=== PATIENT | male | born 1945 | race Caucasian/White ===

== ENCOUNTER 2017-06-17 14:18 | Observation (INO) | payer MEDICARE, BC ==
[2017-06-17] VITALS (7 sets, daily range): BP systolic 141–227; BP diastolic 72–102; PULSE 60–74; RESP 16–18; TEMP 98.1; O2SAT 95–100
[~2017-06-17] VITALS: Ht 177.8 cm; Wt 89.5 kg
[~2017-06-17 14:18] MED LIST: ESOM1CAP6 PO; ZITH250T PO
--- NOTE | 2017-06-17 14:58 | PD ---
HPI Chief Complaint: Cardiac Complaint Time Seen by Provider: 14:45 Travel History International Travel<30 days: No Contact w/Intl Traveler<30days: No Traveled to known affect area: No History of Present Illness HPI To be 1-year-old male with history of hypertension presents for evaluation of chest pain, headache, dizziness. He reports that he woke up with these symptoms yesterday morning. He describes the chest pain as a sharp/pressure type of pain substernally that radiates into the back. The headache is occipital in location and pressure type pain. He reports that his symptoms wax and wane with no obvious aggravating or alleviating factors. He endorses slight dyspnea. Denies nausea, vomiting, diaphoresis, cough, congestion, abdominal pain, recent travel, recent surgery, lower extremity edema. Denies tobacco use. Denies history of aortic aneurysm, PE/DVT, coronary artery disease. He has no other complaints at this time. PFSH Past Medical History Cancer: No Cardiovascular Problems: No Diabetes: No Diminished Hearing: No GERD: Yes Glaucoma: No Hepatitis: No Hiatal Hernia: No Hypertension: No Respiratory: Yes (SEASONAL ALLERGIES) Immunizations Current: No Thyroid Disease: No Past Surgical History Abdominal Surgery: Yes (appendectomy) Appendectomy: Yes Oral Surgery: Yes (T&A) Pacemaker: No Tonsillectomy: Yes Other Surgery: Yes (LEFT KNEE, ARTHOSCOPY) Social History Alcohol Use: Yes (3-4 BEERS PER DAY) Tobacco Use: No Substance Use: No Allergies-Medications (Allergen,Severity, Reaction): Coded Allergies: lactose (Unverified Allergy, Intermediate, DIARRHEA, 06/17/17) penicillin G (Unverified Allergy, Intermediate, HIVES, 06/17/17) Reported Meds & Prescriptions Reported Meds & Active Scripts Active Reported Nasonex Nasal [place] (Mometasone Furoate) 50 Mcg/Act Naspr 2 [place] EACH NARE DAILY Lisinopril Unknown Strength Tab Unknown Dose PO DAILY Aspirin 81 Mg Chew 81 Mg CHEW DAILY Review of Systems Except as stated in HPI: all other systems reviewed are Neg Physical Exam Narrative GENERAL: Well-developed well-nourished male in no acute distress answering questions appropriately. Hypertensive. SKIN: Warm and dry. HEAD: Atraumatic. Normocephalic. EYES: Pupils equal and round. No scleral icterus. No injection or drainage. ENT: No nasal bleeding or discharge. Mucous membranes pink and moist. NECK: Trachea midline. No JVD. CARDIOVASCULAR: Regular rate and rhythm. No murmur appreciated. RESPIRATORY: No accessory muscle use. Clear to auscultation. Breath sounds equal bilaterally. GASTROINTESTINAL: Abdomen soft, non-tender, nondistended. Hepatic and splenic margins not palpable. MUSCULOSKELETAL: No obvious deformities. No clubbing. No cyanosis. No edema. NEUROLOGICAL: Awake and alert. No obvious cranial nerve deficits. Motor grossly within normal limits. Normal speech. PSYCHIATRIC: Appropriate mood and affect; insight and judgment normal. Data Data Last Documented VS Vital Signs Date Time Temp Pulse Resp B/P (MAP) Pulse Ox O2 Delivery O2 Flow Rate FiO2 06/17/17 16:17 16 06/17/17 15:40 60 141/72 (95) 99 Room Air 06/17/17 15:20 2.00 06/17/17 14:19 98.1 Orders Orders Electrocardiogram (06/17/17 ) Basic Metabolic Panel (Bmp) (06/17/17 14:53) Ckmb (Isoenzyme) Profile (06/17/17 14:53) Complete Blood Count With Diff (06/17/17 14:53) Magnesium (Mg) (06/17/17 14:53) Prothrombin Time / Inr (Pt) (06/17/17 14:53) Act Partial Throm Time (Ptt) (06/17/17 14:53) Troponin I (06/17/17 14:53) Chest, Single Ap (06/17/17 14:53) Ecg Monitoring (06/17/17 14:53) Bilateral Bp Monitoring (06/17/17 14:53) Iv Access Insert/Monitor (06/17/17 14:53) Oximetry (06/17/17 14:53) Oxygen Administration (06/17/17 14:53) Morphine Inj (Morphine Inj) (06/17/17 15:00) Sodium Chloride 0.9% Flush (Ns Flush) (06/17/17 15:00) Nitroglycerin Sl (Nitrostat Sl) (06/17/17 15:00) Cta Thor Abd Aorta W Iv C W3d (06/17/17 14:53) Ct Brain W/O Iv Contrast(Rout) (06/17/17 ) CKMB (06/17/17 15:00) CKMB% (06/17/17 15:00) Iohexol 350 Inj (Omnipaque 350 Inj) (06/17/17 16:28) Admit Order (Ed Use Only) (06/17/17 16:42) Labs Laboratory Tests Test 06/17/17 15:00 White Blood Count 10.8 TH/MM3 Red Blood Count 4.32 MIL/MM3 Hemoglobin 14.6 GM/DL Hematocrit 44.3 % Mean Corpuscular Volume 102.3 FL Mean Corpuscular Hemoglobin 33.7 PG Mean Corpuscular Hemoglobin Concent 33.0 % Red Cell Distribution Width 13.7 % Platelet Count 210 TH/MM3 Mean Platelet Volume 10.7 FL Neutrophils (%) (Auto) 53.9 % Lymphocytes (%) (Auto) 33.1 % Monocytes (%) (Auto) 9.9 % Eosinophils (%) (Auto) 2.2 % Basophils (%) (Auto) 0.9 % Neutrophils # (Auto) 5.8 TH/MM3 Lymphocytes # (Auto) 3.6 TH/MM3 Monocytes # (Auto) 1.1 TH/MM3 Eosinophils # (Auto) 0.2 TH/MM3 Basophils # (Auto) 0.1 TH/MM3 CBC Comment AUTO DIFF Differential Comment AUTO DIFF CONFIRMED Prothrombin Time 12.0 SEC Prothromb Time International Ratio 1.1 RATIO Activated Partial Thromboplast Time 21.3 SEC Blood Urea Nitrogen 14 MG/DL Creatinine 1.13 MG/DL Random Glucose 81 MG/DL Calcium Level 9.6 MG/DL Magnesium Level 2.0 MG/DL Sodium Level 135 MEQ/L Potassium Level 5.2 MEQ/L Chloride Level 106 MEQ/L Carbon Dioxide Level 24.9 MEQ/L Anion Gap 4 MEQ/L Estimat Glomerular Filtration Rate 64 ML/MIN Total Creatine Kinase 152 U/L Creatine Kinase MB 1.8 NG/ML Troponin I LESS THAN 0.02 NG/ML MDM Medical Decision Making Medical Screen Exam Complete: Yes Emergency Medical Condition: Yes Medical Record Reviewed: Yes Interpretation(s) CONCLUSION: Chronic right sphenoid sinusitis. Normal brain. Differential Diagnosis Acute coronary syndrome, hypertensive urgency, aortic dissection, pulmonary embolism, costochondritis, pericarditis, myocarditis, pneumothorax, hemothorax Narrative Course The patient was placed on ECG monitoring pulse oximetry. A 12 leak EKG was obtained. Plan is for lab work, a CTA of the aorta, CT brain, chest x-ray. He will be given supplemental nitroglycerin, IV morphine. He will be monitored closely. The patient's initial lab work and imaging studies are reassuring. CTA reveals CONCLUSION: 1. No evidence for aortic dissection or aneurysm. 2. Severe emphysema. 3. Renal and hepatic cysts. 4. Left lung nodules. Followup CT chest in 6 months recommended. 5. Diverticulosis without diverticulitis. The patient was given a copy of his CTA results for follow-up purposes. At this point in time the plan would be to admit the patient of the chest pain center for serial cardiac enzymes and rule out purposes. He is agreeable. Diagnosis Primary Impression: Chest pain Additional Impression: Hypertension Admitting Information Admitting Physician Requests: Mitesh Springer Jun 17, 2017 14:58
[2017-06-17] MEDS ORDERED: MORPHINE SULFATE 4 MG/ML INJ IV PUSH ONE (15:00)
[2017-06-17] MEDS ORDERED: SODIUM CHLORIDE 0.9% FLUSH 10 ML FLUSH IVF PRN (15:00)
[2017-06-17] MEDS: NITROGLYCERIN 0.4 MG SL 25 TABS/BTL SL SCH ×3 (15:05→15:26)
--- NOTE | 2017-06-17 15:15 | RADRPT ---
EXAM DATE/TIME: 06/17/2017 14:56 [facility] COMPARISON: No previous studies available for comparison. INDICATIONS : Chest pain MEDICAL HISTORY : None. SURGICAL HISTORY : None. ENCOUNTER: Initial ACUITY: 3 days PAIN SCORE: 4/10 LOCATION: chest FINDINGS: A single view of the chest demonstrates the lungs to be symmetrically aerated without evidence of mas s, infiltrate or effusion. The cardiomediastinal contours are unremarkable. Osseous structures are intact. CONCLUSION: Normal examination. Westley Guaman MD on June 17, 2017 at 15:14 Board Certified Radiologist. This report was verified electronically.
[2017-06-17 15:31] LABS: AUTOMATED NEUTROPHIL # 5.8 TH/MM3 (1.8-7.7); BASOPHIL # 0.1 TH/MM3 (0-0.2); BASOPHIL % 0.9 % (0.0-2.0); EOSINOPHIL # 0.2 TH/MM3 (0-0.4); EOSINOPHIL % 2.2 % (0.0-4.0); HEMATOCRIT 44.3 % (39.0-51.0); HEMOGLOBIN 14.6 GM/DL (13.0-17.0); LYMPH % 33.1 % (9.0-44.0); LYMPHOCYTE # 3.6 TH/MM3 (1.0-4.8); MEAN CELL VOLUME 102.3 FL (80.0-100.0); MEAN CORPUSCULAR HEMOGLOBIN 33.7 PG (27.0-34.0); MEAN PLATELET VOLUME 10.7 FL (7.0-11.0); MONO % 9.9 % (0.0-8.0); MONOCYTE # 1.1 TH/MM3 (0-0.9); NEUT % 53.9 % (16.0-70.0); PLATELET COUNT 210 TH/MM3 (150-450); RED BLOOD COUNT 4.32 MIL/MM3 (4.50-5.90); RED CELL DISTRIBUTION WIDTH 13.7 % (11.6-17.2); WHITE BLOOD COUNT 10.8 TH/MM3 (4.0-11.0)
[2017-06-17 15:43] LABS: INTERNATIONAL NORMALIZED RATIO 1.1 RATIO
[2017-06-17 15:54] LABS: BICARBONATE 24.9 MEQ/L (21.0-32.0); BLOOD UREA NITROGEN 14 MG/DL (7-18); CALCIUM 9.6 MG/DL (8.5-10.1); CHLORIDE 106 MEQ/L (98-107); CREATININE 1.13 MG/DL (0.60-1.30); GLOMERULAR FILTRATION RATE 64 ML/MIN (>89); GLUCOSE,RANDOM 81 MG/DL (74-106); SODIUM (NA) 135 MEQ/L (136-145); TROPONIN I LESS THAN 0.02 NG/ML (0.02-0.05)
[2017-06-17] MEDS ORDERED: ASPI-516 CHEW (15:56)
[2017-06-17] MEDS ORDERED: LISI2.5T3 PO (15:56)
[2017-06-17] MEDS ORDERED: MOME17I EACH NARE (15:56)
[2017-06-17] MEDS ORDERED: IOHEXOL 350 MG/ML 10 ML VIAL (for RAD DIAG) IVCONTRAST ONE (16:28)
--- NOTE | 2017-06-17 16:30 | RADRPT ---
EXAM DATE/TIME: 06/17/2017 16:02 [facility] COMPARISON: No previous studies available for comparison. INDICATIONS : Headache with chest and back pain. RADIATION DOSE: 56.42 CTDIvol (mGy) MEDICAL HISTORY : Gastroesophageal reflux disease. SURGICAL HISTORY : Appendectomy. Bilateral arthroscopic knee ENCOUNTER: Initial ACUITY: 2 days PAIN SCALE: 7/10 LOCATION: Bilateral cranial TECHNIQUE: Multiple contiguous axial images were obtained of the head. Using automated exposure control and adj ustment of the mA and/or kV according to patient size, radiation dose was kept as low as reasonably a chievable to obtain optimal diagnostic quality images. DICOM format image data is available electro nically for review and comparison. FINDINGS: The brain is normal in appearance. No hemorrhage, infarct, or mass. There is chronic sinus opacificat ion of the right sphenoid chest with periosteal thickening and an air-fluid level. No fractures. CONCLUSION: Chronic right sphenoid sinusitis. Normal brain. Westley Guaman MD on June 17, 2017 at 16:28 Board Certified Radiologist. This report was verified electronically.
--- NOTE | 2017-06-17 16:35 | RADRPT ---
EXAM DATE/TIME: 06/17/2017 16:07 [facility] COMPARISON: CHEST SINGLE AP, June 17, 2017, 14:56. INDICATIONS : Chest pain, subsided yesterday then came back, headache, pain to back, neck pain, nausea and weakness . IV CONTRAST: 75 cc Omnipaque 350 (iohexol) IV RADIATION DOSE: 27.87 CTDIvol (mGy) MEDICAL HISTORY : Gastroesophageal reflux disease. SURGICAL HISTORY : Appendectomy. Arthroscopic bilateral knee. ENCOUNTER: Initial ACUITY: 2 days PAIN SCALE: 8/10 LOCATION: Bilateral chest TECHNIQUE: Volumetric scanning was performed using a multi-row detector CT scanner. The data was post processed with a variety of visualization algorithms including full volume maximum intensity projection, multi -planar sliding thin slab reformation, curved planar reformation, and surface rendering techniques. Using automated exposure control and adjustment of the mA and/or kV according to patient size, radiat ion dose was kept as low as reasonably achievable to obtain optimal diagnostic quality images. DICOM format image data is available electronically for review and comparison. FINDINGS: LUNGS: Severe emphysematous changes are noted. Biapical parenchymal scarring is present at there are 2 pleur al-based nodules seen in the left lower lobe lung oblique fissure measuring up to 6.2 mm there is no evidence of pneumonia. MEDIASTINUM: No abnormally enlarged lymph nodes by CT criteria. No axillary or hilar abnormalities are identified. ABDOMEN: The liver demonstrates a small hypodense lesion in the left lobe measuring 1 cm characteristic of a c yst. Spleen is normal. The gallbladder and pancreas demonstrate no abnormality. The adrenal glands ar e normal. The kidneys demonstrate no evidence of solid renal mass or hydronephrosis. A 1.2 cm left mi dpole renal cyst is present. There is also a circumscribed simple cyst at the lower pole of the left kidney measuring 2.7 cm. No free fluid or abdominal masses are identified. No para-aortic adenopathy is seen. The prostate is prominent with calcifications. Measures 6 x 4.1 cms. Diverticulosis of the s igmoid and descending colon. PELVIS: No evidence of free fluid or pelvic mass. No abnormally enlarged inguinal or retroperitoneal lymph no grabiel are present. The bladder is unremarkable. THORACIC AORTA: The thoracic aortic root is normal with normal branching of the great vessels. There is no evidence of aneurysm or dissection. ABDOMINAL AORTA: There is no evidence of aneurysm. Scattered atherosclerotic calcific plaquing identified. No high-gra de stenosis is seen. PELVIC VESSELS: The internal iliac and external iliac vessels are patent without aneurysm or stenosis. CONCLUSION: 1. No evidence for aortic dissection or aneurysm. 2. Severe emphysema. 3. Renal and hepatic cysts. 4. Left lung nodules. Followup CT chest in 6 months recommended. 5. Diverticulosis without diverticulitis. Westley Guaman MD on June 17, 2017 at 16:29 Board Certified Radiologist. This report was verified electronically.
[2017-06-17] MEDS ORDERED: IOHEXOL 350 MG/ML 50 ML BTL (for Cath Lab) OTHER ONE (16:44)
[2017-06-17] MEDS ORDERED: IOHEXOL 350 MG/ML 100 ML BTL (for Cath Lab) OTHER ONE (16:44)
[2017-06-17] MEDS ORDERED: SODIUM CHLORIDE 0.9% FLUSH 10 ML FLUSH IV FLUSH PRN (17:15)
[2017-06-17] MEDS ORDERED: NITROGLYCERIN 0.4 MG SL 25 TABS/BTL SL PRN (17:30)
[2017-06-17] MEDS ORDERED: ONDANSETRON HCL 4 MG/2 ML VIAL IV PUSH PRN (17:30)
[2017-06-17] MEDS ORDERED: ACETAMINOPHEN 500 MG CPLT PO PRN (17:30)
[2017-06-17] MEDS ORDERED: cloNIDine HCL 0.1 MG TAB PO PRN (18:15)
--- NOTE | 2017-06-17 18:27 | HHI.HP ---
HPI Primary Care Physician Delilah Sam MD Chief Complaint Chest pain, dizziness, headache History of Present Illness 71-year-old male with history of hypertension presents to emergency room for further evaluation of chest pain. Onset 12:30 PM. Location substernal. Initially described as a sharp, shooting pain radiating across inframammary area , changed characteristics now described as pressure. Associated symptoms included headache, dizziness, nausea, diaphoresis, and generalized weakness. Denied nausea or dyspnea. No radiation of pain, however reported right midback was sore. Back discomfort has resolved. Denies a ripping sensation or pain radiated straight though his back. Did not hurt to take a deep breath. Headache located in occipital region described as "someone sitting on my head." No vision changes, slurred speech, or unilateral weakness. Denies worse headache ever. Headache originally 8/10, currently 4/10. No particular movement or position make pain better or worse. No known precipitating factors. No known injury or trauma. No syncopal episode. Relieving factors baby aspirin and morphine given in the ER helped "somewhat." Denies similar pain in the past. Review of Systems General: No fatigue, fever, chills, recent illness, or change in appetite. Has been in his general state of health. HEENT: Continues to have headache as stated above, improving. No vision changes. CV: As stated above. Continues to have chest pressure, sharp pain has resolved. No intermittent leg pain. RESP: No SOB, cough, wheeze, or recent URI. 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 GI: No nausea, vomiting, bowel changes, diarrhea, constipation, pain, melena, or blood in the stool. No unintentional weight gain or weight loss. : No dysuria, urgency, frequency, or history of kidney stones. EXT: No lower leg edema MS: No discomfort, change in ROM, injury, or known trauma. NEURO: Dizziness improved. No difficulty with balance, LOC, motor/sensory deficits, or near syncopal episodes. PSYCH: No anxiety, depression, or situational stress. SKIN: No rashes, no concerning lesions Past Family Social History Allergies: Coded Allergies: lactose (Unverified Allergy, Intermediate, DIARRHEA, 06/17/17) penicillin G (Unverified Allergy, Intermediate, HIVES, 06/17/17) Past Medical History Hypertension, chronic sinusitis, tinnitus Past Surgical History Appendectomy, left knee arthroscopy Reported Medications Reported Meds & Active Scripts Active Reported Nasonex Nasal [place] (Mometasone Furoate) 50 Mcg/Act Naspr 2 [place] EACH NARE DAILY Lisinopril 10mg PO QD Aspirin 81 Mg Chew 81 Mg CHEW DAILY Active Ordered Medications Current Medications Medications (Trade) Dose Ordered Sig/Richelle Route Start Time Stop Time Status Last Admin (NS Flush) 2 ml UNSCH PRN IV FLUSH 06/17/17 17:15 (NS Flush) 2 ml BID IV FLUSH 06/17/17 21:00 (Tylenol) 500 mg Q4H PRN PO 06/17/17 17:30 (Zofran Inj) 4 mg Q6H PRN IV PUSH 06/17/17 17:30 (Nitrostat Sl) 0.4 mg Q5M PRN SL 06/17/17 17:30 (Aspirin) 325 mg DAILY PO 06/18/17 09:00 Family History Brother CABG age 55. Social History Known hypertension. No known diabetes or hyperlipidemia. Former smoker, quit 2003. 125 pack year smoker. Endorses daily alcohol between 3 -6 drinks. . 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 Past cardiac testing None Physical Exam Vital Signs Vital Signs Date Time Temp Pulse Resp B/P (MAP) Pulse Ox O2 Delivery O2 Flow Rate FiO2 06/17/17 17:10 06/17/17 16:17 16 06/17/17 15:40 60 16 141/72 (95) 99 Room Air 06/17/17 15:35 16 06/17/17 15:20 74 16 160/81 (107) 98 Nasal Cannula 2.00 06/17/17 14:50 64 16 205/99 (134) 99 Nasal Cannula 2.00 06/17/17 14:45 100 Nasal Cannula 2.00 06/17/17 14:45 62 16 100 Room Air 06/17/17 14:19 98.1 73 16 227/102 (143) 99 Room Air Physical Exam GENERAL: Alert WN, WD, NAD, pleasant, male HEAD: NC, AT EYES: Sclera clear, conjunctiva without injection, pupils equal and round ENT: Mucous membranes pink and moist NECK: Supple, no masses, trachea midline CV: RRR, without murmur, rub, gallop, no JVD, S1-S2 no S3-S4. No carotid bruits. Chest wall nontender with palpation. RESP: Clear lungs throughout bilateral, no crackles, wheeze, rhonchi, symmetrical chest rise, nonlabored, able to speak in full sentences ABD: Soft, NT, ND, no masses, positive bowel tones BACK: No scoliosis, nontender with palpation. EXT: Pulses +14, no dependent edema MS: Normal tone 4 extremities, no obvious deformities, full range of motion NEURO: CN II through CN XII grossly intact, motor strength 5/5 PSYCH: A+O 3, pleasant affect, appropriate speech, appropriate mood and affect , insight and judgment SKIN: Normal turgor, normal texture, no lesions, no rashes, sluggish cap refill , even hair distribution Laboratory Laboratory Tests Test 06/17/17 15:00 White Blood Count 10.8 Red Blood Count 4.32 Hemoglobin 14.6 Hematocrit 44.3 Mean Corpuscular Volume 102.3 Mean Corpuscular Hemoglobin 33.7 Mean Corpuscular Hemoglobin Concent 33.0 Red Cell Distribution Width 13.7 Platelet Count 210 Mean Platelet Volume 10.7 Neutrophils (%) (Auto) 53.9 Lymphocytes (%) (Auto) 33.1 Monocytes (%) (Auto) 9.9 Eosinophils (%) (Auto) 2.2 Basophils (%) (Auto) 0.9 Neutrophils # (Auto) 5.8 Lymphocytes # (Auto) 3.6 Monocytes # (Auto) 1.1 Eosinophils # (Auto) 0.2 Basophils # (Auto) 0.1 CBC Comment AUTO DIFF Differential Comment AUTO DIFF CONFIRMED Prothrombin Time 12.0 Prothromb Time International Ratio 1.1 Activated Partial Thromboplast Time 21.3 Blood Urea Nitrogen 14 Creatinine 1.13 Random Glucose 81 Calcium Level 9.6 Magnesium Level 2.0 Sodium Level 135 Potassium Level 5.2 Chloride Level 106 Carbon Dioxide Level 24.9 Anion Gap 4 Estimat Glomerular Filtration Rate 64 Total Creatine Kinase 152 Creatine Kinase MB 1.8 Troponin I LESS THAN 0.02 Result Diagram: 06/17/17 1500 06/17/17 1500 Imaging Last Impressions Chest X-Ray 06/17/17 1453 Signed Impressions: Service Date/Time: Saturday, June 17, 2017 14:56 - CONCLUSION: Normal examination. Westley Guaman MD Aorta CTA 06/17/17 1453 Signed Impressions: Service Date/Time: Saturday, June 17, 2017 16:07 - CONCLUSION: 1. No evidence for aortic dissection or aneurysm. 2. Severe emphysema. 3. Renal and hepatic cysts. 4. Left lung nodules. Followup CT chest in 6 months recommended. 5. Diverticulosis without diverticulitis. Westley Guaman MD Head CT 06/17/17 0000 Signed Impressions: Service Date/Time: Saturday, June 17, 2017 16:02 - CONCLUSION: Chronic right sphenoid sinusitis. Normal brain. Westley Guaman MD Course EKG NSB, incomplete Right BBB Caprini VTE Risk Assessment Caprini VTE Risk Assessment: Mod/High Risk (score >= 2) Caprini Risk Assessment Model Point Value = 1 Point Value = 2 Point Value = 3 Point Value = 5 Age 41-60 Minor surgery BMI > 25 kg/m2 Swollen legs Varicose veins or History of unexplained or recurrent spontaneous Oral contraceptives or hormone replacement Sepsis (< 1 month) Serious lung disease, including pneumonia (< 1 month) Abnormal pulmonary function Acute myocardial infarction Congestive heart failure (< 1 month) History of inflammatory bowel disease Medical patient at bed rest Age 61-74 Arthroscopic surgery Major open surgery (> 45 min) Laparoscopic surgery (> 45 min) Malignancy Confined to bed (> 72 hours) Immobilizing plaster cast Central venous access Age >= 75 History of VTE Family history of VTE Factor V Leiden Prothrombin [id number] Lupus anticoagulant Anticardiolipin antibodies Elevated serum homocysteine Heparin-induced thrombocytopenia Other congenital or acquired thrombophilia Stroke (< 1 month) Elective arthroplasty Hip, pelvis, or leg fracture Acute spinal cord injury (< 1 month) Prophylaxis Regimen Total Risk Factor Score Risk Level Prophylaxis Regimen 0-1 Low Early ambulation 2 Moderate Order ONE of the following: *Sequential Compression Device (SCD) *Heparin 5000 units SQ BID 3-4 Higher Order ONE of the following medications: *Heparin 5000 units SQ TID *Enoxaparin/Lovenox 40 mg SQ daily (WT < 150 kg, CrCl > 30 mL/min) *Enoxaparin/Lovenox 30 mg SQ daily (WT < 150 kg, CrCl > 10-29 mL/min) *Enoxaparin/Lovenox 30 mg SQ BID (WT < 150 kg, CrCl > 30 mL/min) AND/OR *Sequential Compression Device (SCD) 5 or more Highest Order ONE of the following medications: *Heparin 5000 units SQ TID (Preferred with Epidurals) *Enoxaparin/Lovenox 40 mg SQ daily (WT < 150 kg, CrCl > 30 mL/min) *Enoxaparin/Lovenox 30 mg SQ daily (WT < 150 kg, CrCl > 10-29 mL/min) *Enoxaparin/Lovenox 30 mg SQ BID (WT < 150 kg, CrCl > 30 mL/min) AND *Sequential Compression Device (SCD) Assessment and Plan Assessment and Plan #1 Atypical chest pain-admitted to chest pain center. Ruled out with 3 sets of EKGs, cardiac enzymes, and monitor overnight. Will be seen and evaluated by Dr. Harvey Gabriel in a.m. Discussed possible cardiac stress testing in a.m., this will be determined after evaluation by stone cutter. Patient agreeable plan of care. #2 Hypertension-continue lisinopril, clonidine 0.1 mg every 6 hours when necessary as needed for systolic greater than 180 or diastolic greater than 100 , repeat BMP in a.m. Consider adding HCTZ as a second antihypertensive agent. #3 Cephalgia-CT brain unremarkable, Tylenol PRN, continue to monitor. Discussed possible reason for headache due to severely elevated blood pressure noted on arrival. Alcohol use-discussed dietary guidelines for alcohol of no more than 2 alcohol drinks daily for men, encouraged him to decrease his alcohol intake for preventive medical management. Follow up CT chest in 6 months discussed. Heather Torres Jun 17, 2017 18:27
[2017-06-17 19:08] LABS: TROPONIN I LESS THAN 0.02 NG/ML (0.02-0.05)
[2017-06-17] MEDS: HYDROCHLOROTHIAZIDE 25 MG TAB PO SCH (19:15)
[2017-06-17] MEDS ORDERED: CALCIUM CARBONATE 500 MG CHEWABLE TAB PO PRN (20:45)
[2017-06-17] MEDS ORDERED: FAMOTIDINE 20 MG TAB PO ONE (20:45)
[2017-06-17] MEDS: SODIUM CHLORIDE 0.9% FLUSH 10 ML FLUSH IV FLUSH SCH (21:00)
[2017-06-17 22:02] LABS: TROPONIN I LESS THAN 0.02 NG/ML (0.02-0.05)
[2017-06-18] VITALS (9 sets, daily range): BP systolic 137–171; BP diastolic 69–83; PULSE 51–80; RESP 16–20; TEMP 97.5–98.8; O2SAT 97–98
[2017-06-18 06:30] LABS: CALCIUM 8.9 MG/DL (8.5-10.1); CREATININE 1.08 MG/DL (0.60-1.30)
[2017-06-18] MEDS: ASPIRIN 325 MG TAB PO SCH (08:07)
[2017-06-18] MEDS: LISINOPRIL 10 MG TAB PO SCH (08:08)
[2017-06-18] MEDS: HYDROCHLOROTHIAZIDE 25 MG TAB PO SCH (08:09)
[2017-06-18] MEDS: SODIUM CHLORIDE 0.9% FLUSH 10 ML FLUSH IV FLUSH SCH ×2 (08:09→20:01)
[2017-06-18] MEDS ORDERED: REGADENOSON INJ 0.4 MG/5 ML SYR ONE (12:04)
--- NOTE | 2017-06-18 14:32 | EKG ---
Date Performed: 06/17/2017 Time Performed: 22:26:45 PTAGE: 71 years EKG: SINUS BRADYCARDIA INCOMPLETE RIGHT BUNDLE BRANCH BLOCK BORDERLINE ECG PREVIOUS TRACING : 06/17/2017 18.35 Since previous tracing, no significant change noted DOCTOR: Harvey Gabriel Interpretating Date/Time 06/18/2017 14:31:22
--- NOTE | 2017-06-18 14:32 | EKG ---
Date Performed: 06/17/2017 Time Performed: 18:35:10 PTAGE: 71 years EKG: SINUS BRADYCARDIA INCOMPLETE RIGHT BUNDLE BRANCH BLOCK BORDERLINE ECG PREVIOUS TRACING : 06/17/2017 14.43 Since previous tracing, no significant change noted DOCTOR: Harvey Gabriel Interpretating Date/Time 06/18/2017 14:32:06
--- NOTE | 2017-06-18 14:33 | EKG ---
Date Performed: 06/17/2017 Time Performed: 14:43:40 PTAGE: 71 years EKG: SINUS BRADYCARDIA INCOMPLETE RIGHT BUNDLE BRANCH BLOCK BORDERLINE ECG NO PREVIOUS TRACING DOCTOR: Harvey Gabriel Interpretating Date/Time 06/18/2017 14:32:27
--- NOTE | 2017-06-18 14:37 | TR ---
Date Performed: 06/18/2017 Time Performed: 09:59:18 DOCTOR: Harvey Gabriel DRUG LIST: CLINICAL HISTORY: REASON FOR TEST: REASON FOR ENDING: OBSERVATION: CONCLUSION: Ant protocol completed. Stopped sec to leg fatigue and exceding target heart rate. Maximum AF=510 Target HR Achieved=94.0% Maximum JO=518/76 Total Exercise Time=3:13. No reprod chest pain. Freq PVC during recovery. No st t segment depression to sugg ischemia. Poor exercise tolerance. Normal bp response. Recovery quick and unremakrable. COMMENTS: . At peak exercise ST depression was noted. ST was upsloping but did not return to ba seline within 80 msec. No chest pain present. This could represent ischemia but likely a false positi ve. Will plan nuclear imaging
--- NOTE | 2017-06-18 14:38 | TR ---
Date Performed: 06/18/2017 Time Performed: 12:21:10 DOCTOR: Harvey Gabriel DRUG LIST: CLINICAL HISTORY: REASON FOR TEST: Angina REASON FOR ENDING: OBSERVATION: CONCLUSION: Lexiscan stress test was performed under standard four minute protocol. Radionuclid e was injected one minute prior to ending the test. No electrocardiographic abormalities were present to suggest ischemia. Nuclear imaging and interpretation are pending. COMMENTS:
--- NOTE | 2017-06-18 15:15 | RADRPT ---
EXAM DATE/TIME: 06/18/2017 11:55 [place] COMPARISON: No previous studies available for comparison. INDICATIONS : Substernal chest pain radiating to the back with dyspnea, headache and dizziness. Angina. DOSE: 27.6 mCi Tc99m Myoview at stress. 8.6 mCi Tc99m Myoview at rest. 0.4 mg Lexiscan STRESS SYMPTOMS: Dyspnea and chest pain EJECTION FRACTION: 64% MEDICAL HISTORY : Gastroesophageal reflux disease. SURGICAL HISTORY : Tonsillectomy. Appendectomy. ENCOUNTER: Initial ACUITY: 1 day PAIN SCALE: 7/10 LOCATION: Substernal chest TECHNIQUE: The patient underwent pharmacologic stress with infusion of prescribed dose. Continuous ECG tracing was monitored during stress. Gated SPECT imaging was performed after stress and conventional SPECT i maging was performed at rest. The examination was performed on a SPECT/CT scanner, both attenuation and non-corrected datasets were reviewed. FINDINGS: DISTRIBUTION: The maximum perfused segment at stress is in the lateral wall. PERFUSION STUDY: Focal perfusion defect in the inferior apical wall during stress. GATED STUDY: There is intact wall motion and thickening without hypokinetic or dyskinetic segments. CONCLUSION: 1. Stress-induced focal inferior apical wall perfusion defect. 2. No focal wall motion abnormality with normal ejection fraction of 64%. RISK CATEGORY: Low (<1% Annual Mortality Rate) Aaron Morris MD on June 18, 2017 at 15:11 Board Certified Radiologist. This report was verified electronically.
--- NOTE | 2017-06-18 16:09 | PD.CARD.PN ---
Subjective Subjective Remarks No complaints overnight. Objective Medications Current Medications Medications (Trade) Dose Ordered Sig/Richelle Route Start Time Stop Time Status Last Admin (NS Flush) 2 ml UNSCH PRN IV FLUSH 06/17/17 17:15 (NS Flush) 2 ml BID IV FLUSH 06/17/17 21:00 06/18/17 08:09 (Tylenol) 500 mg Q4H PRN PO 06/17/17 17:30 (Zofran Inj) 4 mg Q6H PRN IV PUSH 06/17/17 17:30 (Nitrostat Sl) 0.4 mg Q5M PRN SL 06/17/17 17:30 (Aspirin) 325 mg DAILY PO 06/18/17 09:00 06/18/17 08:07 (Prinivil) 10 mg DAILY PO 06/18/17 09:00 06/18/17 08:08 (Catapres) 0.1 mg Q6H PRN PO 06/17/17 18:15 (Hydrodiuril) 25 mg DAILY PO 06/17/17 19:00 06/18/17 08:09 (Tums Chew) 1,000 mg Q2H PRN PO 06/17/17 20:45 Vital Signs / I&O Vital Signs Date Time Temp Pulse Resp B/P (MAP) Pulse Ox O2 Delivery O2 Flow Rate FiO2 06/18/17 07:46 97.5 67 20 160/77 (104) 98 06/18/17 06:59 51 06/18/17 06:33 21 06/18/17 04:46 98.8 54 18 171/83 (112) 98 06/18/17 00:09 97.5 61 18 168/80 (109) 97 06/17/17 20:27 98.1 61 18 182/88 (119) 98 06/17/17 18:29 61 16 183/90 (121) 95 06/17/17 17:10 06/17/17 16:17 16 I/O 06/17/17 06/17/17 06/17/17 06/18/17 06/18/17 06/18/17 07:00 15:00 23:00 07:00 15:00 23:00 Intake Total 120 ml Balance 120 ml Intake Oral 120 ml Physical Exam GENERAL: Alert WN, WD, NAD, pleasant, male HEAD: NC, AT CV: RRR, without murmur, rub, gallop, no JVD, S1-S2 no S3-S4. RESP: Clear lungs throughout bilateral, no crackles, wheeze, rhonchi, symmetrical chest rise, nonlabored, able to speak in full sentences ABD: Soft, NT, ND, no masses, positive bowel tones EXT: Pulses +24, no dependent edema NEURO: CN II through CN XII grossly intact, motor strength 5/5, gait WNL PSYCH: A+O x3 SKIN: Normal turgor, normal texture Laboratory Laboratory Tests Test 06/17/17 18:15 06/17/17 21:00 06/18/17 03:40 Total Creatine Kinase 45 U/L 41 U/L Troponin I LESS THAN 0.02 NG/ML LESS THAN 0.02 NG/ML Blood Urea Nitrogen 18 MG/DL Creatinine 1.08 MG/DL Random Glucose 84 MG/DL Calcium Level 8.9 MG/DL Sodium Level 139 MEQ/L Potassium Level 4.1 MEQ/L Chloride Level 101 MEQ/L Carbon Dioxide Level 30.0 MEQ/L Anion Gap 8 MEQ/L Estimat Glomerular Filtration Rate 67 ML/MIN Imaging Last 24 hours Impressions Myocardial Perfusion Scan Nuc Med 06/18/17 0000 Signed Impressions: Service Date/Time: Sunday, June 18, 2017 11:55 - CONCLUSION: 1. Stress-induced focal inferior apical wall perfusion defect. 2. No focal wall motion abnormality with normal ejection fraction of 64%%. RISK CATEGORY: Low (<1%% Annual Mortality Rate) Aaron Morris MD Assessment and Plan Assessment and Plan #1 Atypical chest pain-admitted to chest pain center. Ruled out with 3 sets of EKGs, cardiac enzymes, and monitor overnight. Seen and dilated by Dr. Harvey Gabriel. Completed an exercise stress test, borderline ST segment changes therefore Lexiscan completed. Chemical stress test conclusion stress induced focal apical wall perfusion defect. Discussed findings with patient and . Consult cardiology and hospitalist for medical management. #2 Hypertension-continue lisinopril, add HCTZ daiily, clonidine 0.1 mg every 6 hours when necessary as needed for systolic greater than 180 or diastolic greater than 100 #3 Cephalgia-resolved, CT brain unremarkable, Tylenol PRN, continue to monitor #4 Alcohol use-CIWA scale Heather Torres Jun 18, 2017 16:09
--- NOTE | 2017-06-18 16:23 | PD.CONS ---
HPI Consult Requested By Primary Care Physician Delilah Sam MD History of Present Illness 71-year-old male with history of hypertension presents to emergency room for further evaluation of chest pain. Onset 12:30 PM. Location substernal. Initially described as a sharp, changed characteristics now described as pressure. Headache originally 8/10, currently 4/10. No particular movement or position make pain better or worse. No known precipitating factors. No recent injury or trauma. No syncopal episode. Relieving factors baby aspirin and morphine given in the ER helped "somewhat." Denies similar pain in the past. EKG unremarkable, Cardiac Markers unremarkable. MPI showing low risk stress test and a focal defect in the inferior wall with preserved LV systolic function. Cardiology consulted for further evaluation and management. Review of Systems Consitutional: DENIES: Fatigue, Fever, Chills, Weight gain, Weight loss Eyes: DENIES: Amaurosis Fugax, Change in vision HEENT: DENIES: Lightheadedness, Change in hearing Respiratory: DENIES: See HPI, Cough, Snoring, Shortness of breath, Wheezing, Sputum production Cardiovascular: COMPLAINS OF: See HPI, Chest pain, DENIES: Palpitations, Syncope, Tachycardia Gastrointestinal: DENIES: Nausea, Vomiting, Change in bowel habits, Reflux, Bloody stools, Melena Genitourinary: DENIES: Urinary incontinence, Difficulty voiding Integumentary: DENIES: Rash Neurologic: DENIES: Tingling or numbness, Memory problems, Poor Balance, Stroke symptoms Musculoskeletal: DENIES: Joint pain, Muscle pain, Limited range of motion, Back pain Psychiatric: DENIES: Anxiety, Depression, Sleep disturbances Hematologic: DENIES: Bruising tendencies, Bleeding tendencies Endocrine: DENIES: Weight gain, Weight loss, Thyroid disease Past Family Social History Allergies: Coded Allergies: lactose (Unverified Allergy, Intermediate, DIARRHEA, 06/17/17) penicillin G (Unverified Allergy, Intermediate, HIVES, 06/17/17) Past Medical History Hypertension, chronic sinusitis, tinnitus Past Surgical History Appendectomy, left knee arthroscopy Reported Medications Reported Meds & Active Scripts Active Reported Nasonex Nasal Polaris (Mometasone Furoate) 50 Mcg/Act Naspr 2 Polaris EACH NARE DAILY Lisinopril Unknown Strength Tab Unknown Dose PO DAILY Aspirin 81 Mg Chew 81 Mg CHEW DAILY Active Ordered Medications Current Medications Medications (Trade) Dose Ordered Sig/Richelle Route Start Time Stop Time Status Last Admin (NS Flush) 2 ml UNSCH PRN IV FLUSH 06/17/17 17:15 (NS Flush) 2 ml BID IV FLUSH 06/17/17 21:00 06/18/17 08:09 (Tylenol) 500 mg Q4H PRN PO 06/17/17 17:30 (Zofran Inj) 4 mg Q6H PRN IV PUSH 06/17/17 17:30 (Nitrostat Sl) 0.4 mg Q5M PRN SL 06/17/17 17:30 (Aspirin) 325 mg DAILY PO 06/18/17 09:00 06/18/17 08:07 (Prinivil) 10 mg DAILY PO 06/18/17 09:00 06/18/17 08:08 (Catapres) 0.1 mg Q6H PRN PO 06/17/17 18:15 (Hydrodiuril) 25 mg DAILY PO 06/17/17 19:00 06/18/17 08:09 (Tums Chew) 1,000 mg Q2H PRN PO 06/17/17 20:45 (Mycostatin Cream) 1 applic ONCE ONCE TOPICAL 06/18/17 16:15 06/18/17 16:16 UNV (Mycostatin Powder) 1 applic ONCE ONCE TOPICAL 06/18/17 16:15 06/18/17 16:16 UNV (Nitroglycerin 2% Oint) 1 inch Q6HR TOPICAL 06/18/17 18:00 UNV (Lopressor) 12.5 mg Q12HR PO 06/18/17 21:00 UNV Family History Brother CABG age 55. Social History Known hypertension. No known diabetes or hyperlipidemia. Former smoker, quit 2003. 125 pack year smoker. Endorses daily alcohol between 3 -6 drinks. . 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 Physical Exam Vital Signs Vital Signs Date Time Temp Pulse Resp B/P (MAP) Pulse Ox O2 Delivery O2 Flow Rate FiO2 06/18/17 07:46 97.5 67 20 160/77 (104) 98 06/18/17 06:59 51 06/18/17 06:33 21 06/18/17 04:46 98.8 54 18 171/83 (112) 98 06/18/17 00:09 97.5 61 18 168/80 (109) 97 06/17/17 20:27 98.1 61 18 182/88 (119) 98 06/17/17 18:29 61 16 183/90 (121) 95 06/17/17 17:10 Physical Exam GENERAL: Well-nourished, well-developed patient. SKIN: Warm and dry. HEAD: Normocephalic. EYES: No scleral icterus. No injection or drainage. NECK: Supple, trachea midline. No JVD or lymphadenopathy. CARDIOVASCULAR: Regular rate and rhythm without murmurs, gallops, or rubs. RESPIRATORY: Breath sounds equal bilaterally. No accessory muscle use. GASTROINTESTINAL: Abdomen soft, non-tender, nondistended. EXTREMITIES: No cyanosis, or edema. NEUROLOGICAL: Awake, alert, and oriented x 3. Non-focal. Laboratory Laboratory Tests Test 06/17/17 18:15 06/17/17 21:00 06/18/17 03:40 Total Creatine Kinase 45 41 Troponin I LESS THAN 0.02 LESS THAN 0.02 Blood Urea Nitrogen 18 Creatinine 1.08 Random Glucose 84 Calcium Level 8.9 Sodium Level 139 Potassium Level 4.1 Chloride Level 101 Carbon Dioxide Level 30.0 Anion Gap 8 Estimat Glomerular Filtration Rate 67 Result Diagram: 06/17/17 1500 06/18/17 0340 Imaging Last Impressions Myocardial Perfusion Scan Nuc Med 06/18/17 0000 Signed Impressions: Service Date/Time: Sunday, June 18, 2017 11:55 - CONCLUSION: 1. Stress-induced focal inferior apical wall perfusion defect. 2. No focal wall motion abnormality with normal ejection fraction of 64%%. RISK CATEGORY: Low (<1%% Annual Mortality Rate) Aaron Morris MD Chest X-Ray 06/17/17 1453 Signed Impressions: Service Date/Time: Saturday, June 17, 2017 14:56 - CONCLUSION: Normal examination. Westley Guaman MD Aorta CTA 06/17/17 1453 Signed Impressions: Service Date/Time: Saturday, June 17, 2017 16:07 - CONCLUSION: 1. No evidence for aortic dissection or aneurysm. 2. Severe emphysema. 3. Renal and hepatic cysts. 4. Left lung nodules. Followup CT chest in 6 months recommended. 5. Diverticulosis without diverticulitis. Westley Guaman MD Head CT 06/17/17 0000 Signed Impressions: Service Date/Time: Saturday, June 17, 2017 16:02 - CONCLUSION: Chronic right sphenoid sinusitis. Normal brain. Westley Guaman MD Assessment and Plan Problem List: (1) Chest pain ICD Codes: R07.9 - Chest pain, unspecified Status: Acute Plan: 71 y/o M with CAD risk factors that include HTN and age admitted with chest pain concerning for Angina. He ruled out by cardiac markers. MPI shows focal defect and preserved EF. Patient continues complaining of ongoing chest pain. Given patient symptoms and MPI results is reasonable to do LHC to further assess CAD. Risk benefits of LHC +/- PCI including but not limited to SELENA, bleeding, infection, CVA, neurovascular trauma, emergent CABG and have been explained. He understands the risks and is willing to proceed. Plan: Keep NPO for LHC today (2) Hypertension ICD Codes: I10 - Essential (primary) hypertension Status: Acute Donnie Thorne MD Jun 18, 2017 16:23
[2017-06-18] MEDS ORDERED: NALOXONE HCL 0.4 MG/ML AMP IV PUSH PRN (16:45)
[2017-06-18] MEDS ORDERED: ONDANSETRON HCL 4 MG/2 ML VIAL IVP PRN (16:45)
[2017-06-18] MEDS ORDERED: oxyCODONE/ACETAMINOPHEN 5 MG/325 MG TAB PO PRN (16:45)
[2017-06-18] MEDS ORDERED: MAGNESIUM HYDROXIDE SUSP 30 ML CUP PO PRN (16:45)
[2017-06-18] MEDS ORDERED: SENNOSIDES 8.6 MG TAB PO PRN (16:45)
[2017-06-18] MEDS ORDERED: SODIUM CHLORIDE 0.9% FLUSH 10 ML FLUSH IV FLUSH PRN (16:45)
[2017-06-18] MEDS ORDERED: ACETAMINOPHEN 325 MG TAB PO PRN (16:45)
[2017-06-18] MEDS ORDERED: BISACODYL 10 MG SUPP RECTAL PRN (16:45)
[2017-06-18] MEDS ORDERED: LACTULOSE SYRUP 20 GM/30 ML CUP PO PRN (16:45)
[2017-06-18] MEDS ORDERED: PROCHLORPERAZINE 25 MG SUPP RECTAL PRN (16:45)
[2017-06-18] MEDS ORDERED: PILL SPLITTER OTHER PRN (16:45)
[2017-06-18] MEDS ORDERED: MORPHINE SULFATE 4 MG/ML INJ IV PUSH PRN (16:45)
[2017-06-18] MEDS ORDERED: oxyCODONE/ACETAMINOPHEN 10 MG/325 MG TAB PO PRN (16:45)
[2017-06-18] MEDS ORDERED: NYSTATIN 100,000 UNIT/GM CREAM 15 GM TOPICAL ONE (17:00)
[2017-06-18] MEDS ORDERED: NYSTATIN 100,000 U/GM PWD 15 GM BTL TOPICAL ONE (17:00)
[2017-06-18] MEDS ORDERED: MORPHINE SULFATE 2 MG/ML INJ IV PRN (17:00)
[2017-06-18] MEDS ORDERED: NITROGLYCERIN INJ 5 ML ONE (17:11)
[2017-06-18] MEDS ORDERED: VERAPAMIL HCL 5 MG/2 ML VIAL ONE (17:11)
[2017-06-18] MEDS ORDERED: HEPARIN SODIUM - IV 10,000 UNITS/10 ML VIAL ONE (17:12)
[2017-06-18] MEDS ORDERED: HEPARIN-NS/PF INJ 1,000 ML ONE (17:12)
[2017-06-18] MEDS ORDERED: MIDAZOLAM HCL 2 MG/2 ML VIAL ONE (17:13)
[2017-06-18] MEDS: NITROGLYCERIN 2% OINT 1 GM PACKET TOPICAL SCH ×2 (18:00→23:09)
[2017-06-18] MEDS ORDERED: SODIUM CHLOR 0.9% 1000 ML INJ 1,000 ML IV SCH (18:00)
--- NOTE | 2017-06-18 18:01 | CATHPROC ---
[place] HIS Report Study Information Study Number Admission Scheduled Start Study Start [id number] Jun 17 2017 4:43PM 06/18/2017 Jun 18 2017 5:12PM [place] Service Cardiac Catheterization Admit Source Facility Department Emergency department [facility] - Mortgage Coordinator Physician and Clinical Staff Initial Donnie Lopez Well Logging Mud Analysis Captain Beatriz Pate,RUPINDER Well Logging Mud Analysis Captain Sola Haas BSRAgustín Recorder Trisha Lovett,RT(R) (BS) Scrub Taylor Quesada RCIS TECH2 Procedures Performed Procedure Location (Site) Vessel Name Coronary Angiograms LCA Left Coronary Coronary Angiograms RCA Right Coronary L Heart Cath Equipment Time Professor Of Anthropology Description Size Mfg Part Number Used/Scraped TRANSDUCER, TRUWAVE [id number] 17:13 JARAMILLO ALDRICH * Used W/STOCKCOCK *[id number] [id number] *[id number] [id number] *[id number] 534-521T *[id number] 17:13 PakSense PACK, CCL CUSTOM * Used *[id number] 17:13 PakSense SUPPORT, ARTERIAL ADULT [id number] *[id number] Used BAND, RADIAL COMPRESSION TR [id number] 17:52 Bday MEDICAL 29CM Used LARGE 29 *[id number] 17:13 Coderwall WIRE, 3MMJ .035 180CM 180CM Used *[id number] 17:13 NAMIC MANIFOLD, 4 PORT * Used *[id number] 17:13 NYCOMED OMNIPAQUE, 350 MG, 150ML 150ML [id number] Used [id number] 17:13 [employer] BLANKET,WARM AIR CCL * Used *[id number] SHEATH, FR6 TRANSRADIAL [id number] 17:13 Lumier FR 6 Used SLENDER 10CM *[id number] Equipment Model, Serial, Lot Number and Expiration Data Description Model Number Serial Number Lot Number Expiration Date BAND, RADIAL COMPRESSION TR [id number] 12-28-2019 LARGE 29 History: Current Medications Medication Dosage/Unit Route Frequency Last Date/Time Taken ASA LISINOPRIL History: Allergies Allergy Reaction lactose DIARRHEA penicillin G HIVES History: Risk Factors Family History of Hypertension Dyslipidemia Previous WI Previous Heart Failure Premature CAD Yes No Yes No No Prior Valve Prior PCI Prior CABG Surgery No No No Cerebrovascular Peripheral Artery Chronic Lung On Dialysis Diabetes Disease Disease Disease No No No No No History: Symptoms/Diagnosis Selection Items Chest pain History: Stress Tests Stress or Imaging Studies Performed Yes Standard Exercise Stress Test No Stress Echo No Stress Test SPECT Stress Test SPECT Result Stress Test SPECT Ischemia Risk/Extent Yes Positive Low Stress Test CMR No Cardiac CTA Coronary Calcium Score No No History: Other Current Smoker Method Quit Packs a Day Years Used Pack Years No Cigarettes 13 Years Ago 2 25 50 Labs Hgb (g/dl) Hct (%) WBC (l/cumm) Platelets (thousands) 11.60-17.00 35.00-51.00 4.00-11.00 150.00-450.00 14.6 44 10.8 210 Glucose (mg/dl) BUN (mg/dl) Creatinine (mg/dl) BUN:Creatinine (1:x) 74.00-106.00 7.00-18.00 0.50-1.30 10.00-20.00 84 18 1.0 18 Na (meq/l) K (meq/l) 136.00-145.00 3.50-5.10 139 4.1 INR (PTT:PT) 0.90-1.10 1.1 Troponin I (ng/ml) CPK (u/l) CPK-MB (ng/ML) 0.02-0.05 26.00-308.00 0.50-3.60 0.02 41 1.8 Medication Medication Total Dose (Bolus/Oral) Medication Total Dosage/Unit 1% XYLOCAINE 1 mL FENTANYL 50 mcg RADIAL COCKTAIL 1 units VERSED 2 mg Medications (Bolus/Oral) Medication Time Given Dosage/Unit Administered By Reason VERSED 06/18/2017 5:42:43 PM 2 mg Beatriz Pate 2 mg VERSED given in lab by Beatriz Pate, RN in Right Antecubital via Peripheral IV. FENTANYL 06/18/2017 5:43:00 PM 50 mcg Beatriz Pate 50 mcg FENTANYL given in lab by Beatriz Pate, RN in Right Antecubital via Peripheral IV. 1% XYLOCAINE 06/18/2017 5:43:54 PM 1 mL Wong-Isiah Donnie 1 mL 1% XYLOCAINE given in lab by Ivy Thornero in Right Radial via Subcutaneous. Ntg 200mcg Verapamil 2.5mg Heparin RADIAL COCKTAIL 06/18/2017 5:44:45 PM 1 units Wong-Isaih, Donnie 3000U 1 units RADIAL COCKTAIL given in lab by Fadumo Donnie in Right Radial via Radial. Reason: Ntg 200 mcg Verapamil 2.5mg Heparin 2500U. Medication (Drip) Medication Time Given Dosage/Unit Concentration/Unit Diluent (ml) Solution IV Solutions 06/18/2017 5:29:27 PM 0 mL (IV) 500 NaCl .9 IV Solutions given in lab by Sola Haas BSRN in Right Antecubital via Peripheral IV. Pump/Drip Flow = 30 ml/hr using NaCl .9. Initial Case Assessment Cardiovascular HR Rhythm NIBP Chest Pain 78 reg 193/99 0 Edema Present Skin color Skin None Normal Warm Dry Circulatory - Right Pulses Dorsalis Pedis Femoral Radial 2 2 2 Scale (0,1,2,3,4,d) Scale (0,1,2,3,4,d) Circulatory - Lower Extremities Color Lower Right Color Lower Left Normal Normal Neurological State Oriented to time-place- Alert Moves all extremities person Respiration - General Respiration Rate SpO2 (%) (B/min) 14 99 Chronological Log Time Study Chronological Log 17:23:53 Patient arrived via Bed. 17:24:00 Patient Name, D.O.B, / Armband Verified By R.N. 17:29:05 Consent signed by the physician and the patient and verified by the Mortgage Coordinator staff. 17:29:06 Pre-op and post- op instructions given; patient acknowledges understanding of instructions. 17:29:06 Verbal Stimulation=2 Physical Stimulation=2 Airway=2 Respiration=2 TOTAL=8. (0=absent, 1=li mited, 2=present) 17:29:07 Presedation assessment performed by Mortgage Coordinator RN. 17:29:13 Allens test performed on the right radial and ulnar artery. 17:29:18 Patient has been NPO for More than 6Hrs. 17:29:20 Skin Breakdown none per pt 17:29:23 Patient Warmer Placed on the Table. 17:29:25 Charlee Prominences Protected 17:29:26 A # 20 IV was noted in the Antecubital (right). Grade = 0 IV Solutions given in lab by Sola Haas BSRN in Right Antecubital via Peripheral IV. Pum p/Drip Flow = 30 ml/hr 17:29:27 using NaCl .9. 17:29:27 History and physical on the chart or being dictated. Assessment: Initial Case, HR=78 BPM, Rhythm=reg, OGKI=585/99 mmhg, Chest Pain=0, Edema=None, Co elena=Normal, Skin = Warm, Dry Right Pulses: Patrick Ped=2, Femoral=2, Radial=2 17:29:28 Lower Right Extremities: Color=Normal Lower Left Extremities: Color=Normal Neurological: State=Alert, Ox3, HARVEY Respiration: Resp=14 B/min, SpO2=99 % Vitals capture started with the following parameters, Patient=Adult, Interval=5 min, Initial Pr fpxqrb=408 mmHg, 17:30:48 Deflation Rate=5 mmHg, Cuff placed on Left Arm 17:32:37 HR=83 bpm, XIVD=026/99 mmhg, SpO2=99.0 %, Resp=12 B/min, Pain=0, Margarita=10, Parsons=2 17:36:34 HR=77 bpm, LNWB=661/96 mmhg, SpO2=98.0 %, Resp=16 B/min, Pain=0, Margariat=10, Parsons=2 17:36:49 Right Radial and right groin prepped with 2% chlorhexidine, and draped after a 3 min. waiti ng time. 17:41:09 MD paged 17:41:20 MD arrived. 17:41:31 HR=77 bpm, UPHG=358/94 mmhg, SpO2=97.0 %, Resp=12 B/min, Pain=0, Margarita=10, Parsons=2 17:42:04 Reference ECG taken 17:42:35 Pressure channel 1 zeroed. 17:42:43 2 mg VERSED given in lab by Beatriz Pate, RUPINDER in Right Antecubital via Peripheral IV. 17:43:00 50 mcg FENTANYL given in lab by Beatriz Pate, RUPINDER in Right Antecubital via Peripheral IV. Time Out. Correct patient, correct procedure, correct physician, power injector not loaded with contrast with surgical 17:43:28 team present. Time Out Concurred by MD and individual staff in procedure. 17:43:41 Case Start 17:43:54 1 mL 1% XYLOCAINE given in lab by Wong-Isiah, Donnie in Right Radial via Subcutaneous. 17:44:21 Access site was right Radial Artery. A SHEATH, FR6 TRANSRADIAL SLENDER 10CM FR 6 was advanced into the Radial (right) using the Perc utaneous 17:44:33 technique. 1 units RADIAL COCKTAIL given in lab by Donnie Thorne in Right Radial via Radial. Reason: N tg 200mcg Verapamil 17:44:45 2.5mg Heparin 2500U. A JR 4.0 INFINITI CATHETER FR 5 was advanced over a wire. OMNIPAQUE, 350 MG, 150ML 150ML was us ed for 17:45:10 injections. Recorded Pressure: LV, HR=86, Condition=Condition 1 17:45:58 (Left Ventricle) LV 130/7/9 Recorded Pressure: LV, Ao, HR=85, Condition=Condition 1 17:46:14 (Left Ventricle) LV 115/-3/2, (Aorta) Ao 117/68/88 17:46:22 The RCA was injected and visualized at various angles. OMNIPAQUE, 350 MG, 150ML 150ML used . 17:46:32 HR=97 bpm, QZOD=944/77 mmhg, SpO2=95.0 %, Resp=11 B/min, Pain=0, Margarita=10, Parsons=2 17:47:32 Catheter was removed A JL 3.5 INFINITI CATHETER FR 5 was advanced over a wire. OMNIPAQUE, 350 MG, 150ML 150ML was us ed for 17:47:33 injections. Recorded Pressure: Ao, HR=86, Condition=Condition 1 17:48:30 (Aorta) Ao 114/69/89 17:50:09 The LCA was injected and visualized at various angles. OMNIPAQUE, 350 MG, 150ML 150ML used . 17:51:25 HR=97 bpm, GQIL=743/74 mmhg, SpO2=94 %, Resp=12 B/min, Pain=0, Margarita=10, Parsons=2 17:51:38 Catheter was removed 17:52:44 Case End 17:54:08 Catheter(s) removed without difficulty Radial Compression Device Used. 13 mLs of air placed in BAND, RADIAL COMPRESSION TR LARGE 29 29 CM. Affected 17:54:11 hand 95 % O2 saturation. 17:54:23 No case complications noted. 17:54:36 Bedside Report will be given. 17:54:38 A Left Heart Cath was performed. 18:00:31 Patient moved to stretcher End Study - Contrast Media Used In Study Contrast Total Opened (mL) Total Used (mL) Total Wasted (mL) Omnipaque 45 45 0 End Study - Maximum Contrast Load Max Contrast Load (mL) 455.0 End Study - Radiation Exposure Fluoro Time (minutes) 3.4 End Study - Sheaths Sheaths Pulled By Sheath Hold Time (min) Taylor Quesada End Study - Patient Disposition Complications Transferred To Interventional Outcome No Mortgage Coordinator Holding No attempt made
[2017-06-18] MEDS: DOCUSATE SODIUM 50 MG/SENNA 8.6 MG TAB PO SCH (20:01)
[2017-06-18] MEDS: METOPROLOL TARTRATE 25 MG TAB PO SCH (20:01)
--- NOTE | 2017-06-18 20:48 | MA ---
cc: COOKIEHARMAN DATE 06/18/2017 DATE OF 1945 PROCEDURE PERFORMED 1. Left heart catheterization. 2. Selective right and left coronary angiography. 3. Left ventricle hemodynamics. INDICATION Chest pain. Positive stress test, low-risk. DESCRIPTION OF PROCEDURE Consent signed. The patient was prepped and draped in sterile fashion. Using 1% lidocaine for local anesthesia and a micropuncture kit, a slender 6-Moroccan sheath was inserted into the right radial artery. Antispasmodic cocktail given then selective right and left coronary angiography was performed with a JR-4 and JL-3.5 diagnostic catheter. Angiography was taken in multiple views. The patient has a known preserved ejection fraction, thus ventriculogram was not performed. However, left ventricle was crossed with a JR-4 over a wire. This was followed by pressure recordings and pullback. The patient tolerated the procedure without complications. Estimated blood loss less than 5 mL. Total contrast 45 mL. The right radial access site was closed with a TR band. RESULTS LEFT VENTRICLE The left ventricular pressure was 115/-3 with an LVEDP of 2. The aortic pressure was 114/69 with a mean of 89. There was no gradient upon pullback from the left ventricle to aorta. ANGIOGRAPHIC RESULTS 1. Right coronary artery. The right coronary artery is a dominant vessel. It is a dominant vessel giving off the PDA. The right coronary artery is tortuous, however with no significant obstructive coronary artery disease. It is giving an RV branch, branch, the PDA as mentioned and a PLV branch, all of which are patent with nonobstructive coronary artery disease. 2. Left main is patent with BRIGITTE III flow, no obstructive coronary artery disease. It is giving off the left circumflex artery and the LAD. 3. The LAD is a transapical vessel. It has minimal luminal irregularities. It is giving off two diagonal vessels which are patent. 4. The left circumflex artery is patent with BRIGITTE III flow. It has three OM branches which are also patent with nonobstructive coronary artery disease. RECOMMENDATIONS Continue medical management for primary prevention of CAD. CONCLUSION Nonobstructive coronary artery disease. RECOMMENDATIONS The patient will go back to his room for post cath care. He will be continued on medical management per primary team. He can be discharged home from a cardiology standpoint. MD BAO Juan /6:01 PM /8:[address] [facility]
[2017-06-19] VITALS (13 sets, daily range): BP systolic 118–139; BP diastolic 60–66; PULSE 52–84; RESP 14–16; TEMP 97.3–97.8; O2SAT 96–98
[2017-06-19] MEDS: NITROGLYCERIN 2% OINT 1 GM PACKET TOPICAL SCH (05:07)
[2017-06-19 05:08] LABS: BASOPHIL % 0.3 % (0.0-2.0); EOSINOPHIL # 0.2 TH/MM3 (0-0.4); EOSINOPHIL % 1.9 % (0.0-4.0); HEMATOCRIT 42.4 % (39.0-51.0); HEMOGLOBIN 14.6 GM/DL (13.0-17.0); LYMPH % 27.6 % (9.0-44.0); LYMPHOCYTE # 2.7 TH/MM3 (1.0-4.8); MEAN CELL VOLUME 101.6 FL (80.0-100.0); MEAN CORPUSCULAR HGB CONC 34.5 % (32.0-36.0); MEAN PLATELET VOLUME 10.2 FL (7.0-11.0); MONO % 9.3 % (0.0-8.0); MONOCYTE # 0.9 TH/MM3 (0-0.9); NEUT % 60.9 % (16.0-70.0); PLATELET COUNT 207 TH/MM3 (150-450); RED BLOOD COUNT 4.17 MIL/MM3 (4.50-5.90); RED CELL DISTRIBUTION WIDTH 13.3 % (11.6-17.2); WHITE BLOOD COUNT 9.8 TH/MM3 (4.0-11.0)
[2017-06-19 05:42] LABS: ALBUMIN 3.7 GM/DL (3.4-5.0); AST (GOT) 18 U/L (15-37); BICARBONATE 27.2 MEQ/L (21.0-32.0); BLOOD UREA NITROGEN 14 MG/DL (7-18); CHLORIDE 104 MEQ/L (98-107); CHOLESTEROL 136 MG/DL (120-200); CREATININE 1.02 MG/DL (0.60-1.30); GLOMERULAR FILTRATION RATE 72 ML/MIN (>89); GLUCOSE,RANDOM 96 MG/DL (74-106); MAGNESIUM 1.9 MG/DL (1.5-2.5); SODIUM (NA) 139 MEQ/L (136-145)
[2017-06-19 05:51] LABS: ALKALINE PHOSPHATASE 54 U/L (45-117); ALT (GPT) 12 U/L (12-78); CHOLESTEROL/ HDL RATIO 2.83 RATIO; FREE T4 0.99 NG/DL (0.76-1.46); HDL CHOLESTEROL 47.9 MG/DL (40.0-60.0); LDL CHOLESTEROL 67 MG/DL (0-99); PHOSPHORUS 2.7 MG/DL (2.5-4.9); TOTAL BILIRUBIN ADULT 0.7 MG/DL (0.2-1.0); TOTAL PROTEIN 6.9 GM/DL (6.4-8.2); TRIGLYCERIDES 104 MG/DL (42-150)
--- NOTE | 2017-06-19 07:49 | HHI.PR ---
Subjective Remarks resting comfortably with no distress. no chest pain or sob. d/w the RN and no acute issues over night. Objective Vitals Vital Signs Date Time Temp Pulse Resp B/P (MAP) Pulse Ox O2 Delivery O2 Flow Rate FiO2 06/19/17 06:00 53 06/19/17 05:00 57 06/19/17 04:00 53 06/19/17 03:30 97.8 62 16 139/66 (90) 96 06/19/17 03:00 61 06/19/17 02:00 54 06/19/17 01:00 60 06/19/17 00:09 97 21 06/19/17 00:00 84 06/18/17 23:00 66 06/18/17 23:00 97.7 60 16 137/79 (98) 97 06/18/17 22:00 60 06/18/17 21:00 70 06/18/17 20:30 97.7 80 16 137/69 (91) 97 06/18/17 20:00 77 06/18/17 18:54 96 Room Air I/O 06/18/17 06/18/17 06/18/17 06/19/17 06/19/17 06/19/17 07:00 15:00 23:00 07:00 15:00 23:00 Intake Total 200 ml 460 ml Output Total 625 ml Balance 200 ml -165 ml Intake Oral 460 ml IV Total 200 ml Output Urine Total 625 ml # Bowel Movements 0 Result Diagram: 06/19/17 0458 06/19/17 0458 Imaging Last Impressions Myocardial Perfusion Scan Nuc Med 06/18/17 0000 Signed Impressions: Service Date/Time: Sunday, June 18, 2017 11:55 - CONCLUSION: 1. Stress-induced focal inferior apical wall perfusion defect. 2. No focal wall motion abnormality with normal ejection fraction of 64%%. RISK CATEGORY: Low (<1%% Annual Mortality Rate) Aaron Morris MD Chest X-Ray 06/17/17 [id number] Signed Impressions: Service Date/Time: Saturday, June 17, 2017 14:56 - CONCLUSION: Normal examination. Westley Guaman MD Aorta CTA 06/17/17 [id number] Signed Impressions: Service Date/Time: Saturday, June 17, 2017 16:07 - CONCLUSION: 1. No evidence for aortic dissection or aneurysm. 2. Severe emphysema. 3. Renal and hepatic cysts. 4. Left lung nodules. Followup CT chest in 6 months recommended. 5. Diverticulosis without diverticulitis. Westley Guaman MD Head CT 06/17/17 0000 Signed Impressions: Service Date/Time: Saturday, June 17, 2017 16:02 - CONCLUSION: Chronic right sphenoid sinusitis. Normal brain. Westley Guaman MD Objective Remarks GENERAL: This is a well-nourished, well-developed patient, in no apparent distress. CARDIOVASCULAR: Regular rate and regular rhythm without murmurs, gallops, or rubs. RESPIRATORY: Clear to auscultation. Breath sounds equal bilaterally. No wheezes , rales, or rhonchi. GASTROINTESTINAL: Abdomen soft, non-tender, nondistended. Normal, active bowel sounds MUSCULOSKELETAL: Extremities without clubbing, cyanosis, or edema. NEURO: Alert & Oriented x4 to person, place, time, situation. Moves all ext x4 Procedures cardiac cath. Medications and IVs Current Medications Morphine Sulfate (Morphine Inj) 4 mg ONCE ONCE IV PUSH Last administered on 15:26; Start 06/17/17 at 15:00; Stop 06/17/17 at 15:01; Status DC Sodium Chloride (NS Flush) 2 ml UNSCH PRN IVF FLUSH AFTER USING IV ACCESS Last administered on 06/17/17 15:26; Start 06/17/17 at 15:00; Stop 06/17/17 at 17 :29; Status DC Nitroglycerin (Nitrostat Sl) 0.4 mg Q5M SL Last administered on 06/17/17 15: 05; Start 06/17/17 at 15:00; Stop 06/17/17 at 15:11; Status DC Iohexol (Omnipaque 350 Inj) 75 ml STK-MED ONCE IVCONTRAST Last administered on 06/17/17 16:28; Start 06/17/17 at 16:28; Stop 06/17/17 at 16:29; Status DC Sodium Chloride (NS Flush) 2 ml UNSCH PRN IV FLUSH FLUSH AFTER USING IV ACCESS ; Start 06/17/17 at 17:15; Stop 06/18/17 at 16:55; Status DC Sodium Chloride (NS Flush) 2 ml BID IV FLUSH Last administered on 06/18/17 08 :09; Start 06/17/17 at 21:00; Stop 06/18/17 at 16:55; Status DC Acetaminophen (Tylenol) 500 mg Q4H PRN PO HEADACHE; Start 06/17/17 at 17:30; Stop 06/18/17 at 16:55; Status DC Ondansetron HCl (Zofran Inj) 4 mg Q6H PRN IV PUSH NAUSEA; Start 06/17/17 at 17 :30; Stop 06/18/17 at 16:55; Status DC Nitroglycerin (Nitrostat Sl) 0.4 mg Q5M PRN SL CHEST PAIN; Start 06/17/17 at 17:30 Aspirin (Aspirin) 325 mg DAILY PO Last administered on 06/18/17 08:07; Start 06/18/17 at 09:00 Lisinopril (Prinivil) 10 mg DAILY PO Last administered on 06/18/17 08:08; Start 06/18/17 at 09:00 Clonidine (Catapres) 0.1 mg Q6H PRN PO SBP> OR = 180, DBP> OR = 100; Start at 18:15 Hydrochlorothiazide (Hydrodiuril) 25 mg DAILY PO Last administered on 08:09; Start 06/17/17 at 19:00 Famotidine (Pepcid) 20 mg NOW ONCE PO Last administered on 06/17/17 21:00; Start 06/17/17 at 20:45; Stop 06/17/17 at 20:46; Status DC Calcium Carbonate (Tums Chew) 1,000 mg Q2H PRN PO INDIGESTION; Start 06/17/17 at 20:45 Regadenoson (Lexiscan Inj) 0.4 mg STK-MED ONCE .ROUTE Last administered on 12:04; Start 06/18/17 at 12:04; Stop 06/18/17 at 12:05; Status DC Nystatin (Mycostatin Cream) 1 applic ONCE ONCE TOPICAL ; Start 06/18/17 at 17: 00; Stop 06/18/17 at 17:01; Status DC Nystatin (Mycostatin Powder) 1 applic ONCE ONCE TOPICAL ; Start 06/18/17 at 17 :00; Stop 06/18/17 at 17:01; Status DC Nitroglycerin (Nitroglycerin 2% Oint) 1 inch Q6HR TOPICAL ; Start 06/18/17 at 18:00 Metoprolol Tartrate (Lopressor) 12.5 mg Q12HR PO Last administered on 20:01; Start 06/18/17 at 21:00 Miscellaneous (Pill Splitter) 1 ea UNSCH PRN OTHER SEE LABEL COMMENTS; Start 06/18/17 at 16:45 Sodium Chloride (NS Flush) 2 ml UNSCH PRN IV FLUSH FLUSH AFTER USING IV ACCESS ; Start 06/18/17 at 16:45 Sodium Chloride (NS Flush) 2 ml BID IV FLUSH Last administered on 06/18/17 20 :01; Start 06/18/17 at 21:00 Acetaminophen (Tylenol) 650 mg Q4H PRN PO TEMP > 100.4; Start 06/18/17 at 16: 45 Ondansetron HCl (Zofran Inj) 4 mg Q6H PRN IVP NAUSEA OR VOMITING; Start at 16:45 Prochlorperazine (Compazine Supp) 25 mg Q12H PRN RECTAL NAUSEA OR VOMITING; Start 06/18/17 at 16:45 Oxycodone/ Acetaminophen (Percocet 5-325 Mg) 1 tab Q6H PRN PO PAIN SCALE 3 TO 5; Start 06/18/17 at 16:45 Oxycodone/ Acetaminophen (Percocet 10-325 Mg) 1 tab Q6H PRN PO PAIN SCALE 6 TO 10; Start 06/18/17 at 16:45 Morphine Sulfate (Morphine Inj) 2 mg Q3H PRN IV Pain 3-5; if unable to take PO ; Start 06/18/17 at 17:00 Morphine Sulfate (Morphine Inj) 4 mg Q3H PRN IV PUSH Pain 6-10;if unable to take PO; Start 06/18/17 at 16:45 Naloxone HCl (Narcan Inj) 0.4 mg UNSCH PRN IV PUSH SEE LABEL COMMENTS; Start 06/18/17 at 16:45 Senna/Docusate Sodium (Libby-Colace) 1 tab BID PO Last administered on 20:01; Start 06/18/17 at 21:00 Magnesium Hydroxide (Milk Of Magnesia Liq) 30 ml Q12H PRN PO Mild constipation ; Start 06/18/17 at 16:45 Sennosides (Senokot) 17.2 mg Q12H PRN PO Moderate constipation; Start at 16:45 Bisacodyl (Dulcolax Supp) 10 mg DAILY PRN RECTAL SEVERE CONSITIPATION; Start 06/18/17 at 16:45 Lactulose (Lactulose Liq) 30 ml DAILY PRN PO SEVERE CONSITIPATION; Start 06/18 at 16:45 Verapamil HCl (Isoptin Inj) 5 mg STK-MED ONCE .ROUTE Last administered on 06/18 17:44; Start 06/18/17 at 17:11; Stop 06/18/17 at 17:12; Status DC Nitroglycerin 5 ml @ As Directed STK-MED ONCE .ROUTE Last administered on 06/18 17:44; Start 06/18/17 at 17:11; Stop 06/18/17 at 17:12; Status DC Heparin Sodium (Porcine) (Heparin Inj) 10,000 units STK-MED ONCE .ROUTE Last administered on 06/18/17 17:44; Start 06/18/17 at 17:12; Stop 06/18/17 at 17 :13; Status DC Heparin Sodium/ Sodium Chloride 1,000 ml @ As Directed STK-MED ONCE .ROUTE Last administered on 06/18/17 17:12; Start 06/18/17 at 17:12; Stop 06/18/17 at 17:13; Status DC Midazolam HCl (Versed Inj) 2 mg STK-MED ONCE .ROUTE Last administered on 17:42; Start 06/18/17 at 17:13; Stop 06/18/17 at 17:14; Status DC Fentanyl Citrate (fentaNYL INJ) 100 mcg STK-MED ONCE .ROUTE Last administered on 06/18/17 17:43; Start 06/18/17 at 17:13; Stop 06/18/17 at 17:14; Status DC Sodium Chloride 1,000 ml @ 100 mls/hr Q10H IV Last administered on 06/18/17 20:02; Start 06/18/17 at 18:00; Stop 06/18/17 at 18:09; Status DC Pneumococcal Polyvalent Vaccine (Pneumovax-23 Inj) 25 mcg ONCE ONCE IM ; Start 06/19/17 at 10:00; Stop 06/19/17 at 10:01 Iohexol (OMNIPAQUE 350 INJ ([employer])) 100 ml STK-MED ONCE OTHER ; Start at 16:44; Stop 06/19/17 at 07:32; Status DC Iohexol (OMNIPAQUE 350 INJ ([employer])) 50 ml STK-MED ONCE OTHER ; Start at 16:44; Stop 06/19/17 at 07:32; Status DC A/P Assessment and Plan A/P - chest pain- now has resolved. cardiology consult appreciated- s/p cardiac cath with nonobstructive CAD- cleared for discharge. -hypertension- has much improved- continue metoprolol and lisinopril- f/u as outpatient with his PCP. -lung nodule- f/u as outpatient and this was d/w the patient. Discharge Planning dc home. f/u; pcp. d/w the patient and RN. Jes Miller MD Jun 19, 2017 07:49
[2017-06-19] MEDS ORDERED: LISI10TA3 PO (07:52)
[2017-06-19] MEDS ORDERED: METO25TA3 PO (07:52)
[2017-06-19] MEDS ORDERED: HYDR25TA5 PO (07:52)
--- NOTE | 2017-06-19 07:53 | HHI.DS ---
Discharge Summary Admission Date Jun 17, 2017 at 16:43 Discharge Date: Jun 19, 2017 Admitting Diagnosis chest pain, hypertension (1) Chest pain ICD Code: R07.9 - Chest pain, unspecified Diagnosis: Principal Status: Acute Procedures cardiac cath. Brief History - From Admission 71-year-old male with history of hypertension presents to emergency room for further evaluation of chest pain. Location substernal. Initially described as a sharp, shooting pain radiating across inframammary area, changed characteristics now described as pressure. Associated symptoms included headache, dizziness, nausea, diaphoresis, and generalized weakness. CBC/BMP: 06/19/17 0458 06/19/17 0458 Significant Findings Laboratory Tests Test 06/17/17 15:00 06/17/17 18:15 06/17/17 21:00 06/18/17 03:40 Red Blood Count 4.32 MIL/MM3 (4.50-5.90) Mean Corpuscular Volume 102.3 FL (80.0-100.0) Monocytes (%) (Auto) 9.9 % (0.0-8.0) Monocytes # (Auto) 1.1 TH/MM3 (0-0.9) Prothrombin Time 12.0 SEC (9.8-11.6) Activated Partial Thromboplast Time 21.3 SEC (24.3-30.1) Sodium Level 135 MEQ/L (136-145) Potassium Level 5.2 MEQ/L (3.5-5.1) Anion Gap 4 MEQ/L (5-15) Estimat Glomerular Filtration Rate 64 ML/MIN (>89) 67 ML/MIN (>89) Troponin I LESS THAN 0.02 NG/ML LESS THAN 0.02 NG/ML LESS THAN 0.02 NG/ML Test 06/19/17 04:58 Red Blood Count 4.17 MIL/MM3 (4.50-5.90) Mean Corpuscular Volume 101.6 FL (80.0-100.0) Mean Corpuscular Hemoglobin 35.0 PG (27.0-34.0) Monocytes (%) (Auto) 9.3 % (0.0-8.0) Estimat Glomerular Filtration Rate 72 ML/MIN (>89) PE at Discharge GENERAL: This is a well-nourished, well-developed patient, in no apparent distress. CARDIOVASCULAR: Regular rate and regular rhythm without murmurs, gallops, or rubs. RESPIRATORY: Clear to auscultation. Breath sounds equal bilaterally. No wheezes , rales, or rhonchi. GASTROINTESTINAL: Abdomen soft, non-tender, nondistended. Normal, active bowel sounds MUSCULOSKELETAL: Extremities without clubbing, cyanosis, or edema. NEURO: Alert & Oriented x4 to person, place, time, situation. Moves all ext x4 Hospital Course - chest pain- now has resolved. cardiology consult appreciated- s/p cardiac cath with nonobstructive CAD- cleared for discharge. -hypertension- has much improved- continue metoprolol and lisinopril- f/u as outpatient with his PCP. -lung nodule- f/u as outpatient and this was d/w the patient. Pt Condition on Discharge: Good Discharge Disposition: Discharge Home Discharge Time: <= 30 minutes Discharge Instructions DIET: Follow Instructions for: Heart Healthy Diet Activities you can perform: Regular-No Restrictions Follow up Referrals: PCP Follow-up New Medications: Hydrochlorothiazide (Hydrochlorothiazide) 25 Mg Tab 25 MG PO DAILY for hypertension for 30 Days, #30 TAB 0 Refills Lisinopril (Lisinopril) 10 Mg Tab 10 MG PO DAILY for hypertension for 30 Days, #30 TAB 0 Refills Metoprolol Tartrate (Metoprolol Tartrate) 25 Mg Tab 12.5 MG PO Q12HR for hypertension for 30 Days, TAB 0 Refills Continued Medications: Aspirin (Aspirin) 81 Mg Chew 81 MG CHEW DAILY, TAB 0 Refills Mometasone Nasal [place] (Nasonex Nasal [place]) 50 Mcg/Act Naspr 2 SPRAY EACH NARE DAILY for Allergy Management, #1 BOTTLE 0 Refills Discontinued Medications: Lisinopril (Lisinopril) Unknown Strength Tab Unknown Dose PO DAILY, #30 TAB 0 Refills Jes Miller MD Jun 19, 2017 07:53
[2017-06-19] MEDS: LISINOPRIL 10 MG TAB PO SCH (08:25)
[2017-06-19] MEDS: ASPIRIN 325 MG TAB PO SCH (08:25)
[2017-06-19] MEDS: DOCUSATE SODIUM 50 MG/SENNA 8.6 MG TAB PO SCH (08:25)
[2017-06-19] MEDS: METOPROLOL TARTRATE 25 MG TAB PO SCH (08:25)
[2017-06-19] MEDS: HYDROCHLOROTHIAZIDE 25 MG TAB PO SCH (08:26)
[2017-06-19] MEDS: SODIUM CHLORIDE 0.9% FLUSH 10 ML FLUSH IV FLUSH SCH (09:00)
[2017-06-19] MEDS ORDERED: PNEUMOCOCCAL POLYVALENT INJ 25 MCG/0.5 ML SYR IM ONE (10:00)
[2017-06-19 12:52] LABS: HEMOGLOBIN A1C 5.4 % (4.3-6.0)
== END 2017-06-19 11:21 | disposition home or self-care (01) ==
LOC: NEPC 14:18 → NEDH 16:43 → NEPFCDU 17:19 → HCIS 06-18 17:49 → HCPC 06-18 19:22
PROVIDERS: ADMIT Internal Medicine; ATTEND Internal Medicine
DX: R07.89 Other chest pain (principal); I10 Essential (primary) hypertension; R51 Headache; R42 Dizziness and giddiness; I25.10 Atherosclerotic heart disease of native coronary artery without angina pectoris; K21.9 Gastro-esophageal reflux disease without esophagitis; J30.2 Other seasonal allergic rhinitis; R00.1 Bradycardia, unspecified; R91.1 Solitary pulmonary nodule; J43.9 Emphysema, unspecified; K76.89 Other specified diseases of liver; K57.90 Diverticulosis of intestine, part unspecified, without perforation or abscess without bleeding; I45.10 Unspecified right bundle-branch block; J32.3 Chronic sphenoidal sinusitis; Z79.899 Other long term (current) drug therapy; Z79.82 Long term (current) use of aspirin; Z87.891 Personal history of nicotine dependence
CPT/HCPCS: 70450; 71010; 71275; 74174; 78452; 80048; 80053; 80061; 82550; 82552; 83036; 83735; 84100; 84439; 84443; 84484; 85025; 85610; 85730; 93005; 93017; 93458; 96374; 99152; 99153; 99285; A9502; C1769; C1893; G0378; J1644; J2250; J2270; J2785; J3010; J7030; Q9967